=== PATIENT | male | born 1995 | race Caucasian/White ===

== ENCOUNTER 2024-09-14 14:06 | Outpatient (REF) | payer MEDICAID, SELFPAY ==
[2024-09-14 20:01] LABS: Abs Immature Grans 0.02 10^3/uL (0.0-0.06); Absolute Basophil Count 0.03 10^3/uL (0.0-0.2); Absolute Eosinophil Count 0.01 10^3/uL (0.0-0.7); Absolute Lymphocyte Count 0.81 10^3/uL (1.2-3.4); Absolute Monocyte Count 0.61 10^3/uL (0.1-0.8); Absolute Neutrophil Count 5.99 10^3/uL (1.2-6.7); Basophils % 0.4 %; Eosinophils % 0.1 %; HCT 49.3 % (40.0-50.0); HGB 16.8 g/dL (13.5-17.5); Immature Grans % 0.3 %; Lymphocytes % 10.8 %; MCH 28.1 pg (27.0-33.0); MCHC 34.1 % (32.0-36.0); MCV 82 fL (80-95); MPV 11.4 fL (8.0-11.0); Monocytes % 8.2 %; Neutrophils % 80.2 %; Platelet Count 220 10^3/uL (130-400); RBC 5.98 10^6/uL (4.36-5.78); RDW 11.9 % (11.8-14.1); RDW-SD 35.7 fL; WBC 7.47 10^3/uL (4.4-10.8)
[2024-09-14 20:35] LABS: ALT 60 U/L (16-63); AST 32 U/L (15-37); Albumin 4.7 g/dL (3.4-5.0); Alkaline Phosphatase 92 U/L (46-116); Anion Gap 8.4 mmol/L (3-11); BUN 13 mg/dL (7-18); Bilirubin, Total 0.6 mg/dL (0.2-1.0); CO2 26.6 mmol/L (21.0-32.0); Calcium 9.9 mg/dL (8.5-10.1); Chloride 104 mmol/L (98-107); Estimated GFR 103.84 (mL/min/1.73m2); Glucose 127 mg/dL (74-106); Sodium 139 mmol/L (136-145); TSH 1.69 uIU/mL (0.36-3.74); Total Protein 8.1 g/dL (6.4-8.2)
== END 2024-09-14 14:07 | disposition home or self-care (01) ==
LOC: NCHCN 14:06
PROVIDERS: PCP Physician Assistant; Visit Provider Physician Assistant
DX: R07.9 Chest pain, unspecified (principal)
CPT/HCPCS: 80053; 84443; 85025